=== PATIENT | female | born 1965 | race Caucasian/White ===

== ENCOUNTER → 2017-06-15 | Outpatient (CLI) | payer BC ==
[~2017-06-15] VITALS: Ht 166.4 cm; Wt 63.5 kg
[~2017-06-15] MED LIST: ACID CONTROL150 MG PO; HYDROCHLOROTHIA25 MG PO; [UNRECOGNIZED DRUG - OTHER] PO
== END | disposition home or self-care (01) ==
LOC: AMB 08:55
PROVIDERS: Internal Medicine
DX: Z12.11 Encounter for screening for malignant neoplasm of colon (principal); Z80.0 Family history of malignant neoplasm of digestive organs; K57.30 Diverticulosis of large intestine without perforation or abscess without bleeding; K59.9 Functional intestinal disorder, unspecified; R13.10 Dysphagia, unspecified; I10 Essential (primary) hypertension; K21.9 Gastro-esophageal reflux disease without esophagitis; E11.9 Type 2 diabetes mellitus without complications; E04.1 Nontoxic single thyroid nodule; E55.9 Vitamin D deficiency, unspecified; Z88.2 Allergy status to sulfonamides
CPT/HCPCS: 82948; 93005